=== PATIENT | male | born 1940 | race Caucasian/White ===

== ENCOUNTER 2016-08-29 17:09 | Emergency (ER) | payer MEDICARE, BC ==
[~2016-08-29] VITALS: Ht 172.7 cm; Wt 84.1 kg
[~2016-08-29 17:09] MED LIST: ALLO300 PO; CARB25TA PO; COMT200T PO; LORA-474 PO; OCUVTAB PO; PROS5TAB2 PO; VITA200017 PO; Z.0.WALKERFRONT
[2016-08-29 17:20] VITALS: BP 178/74; PULSE 81; RESP 28; TEMP 97.6; O2SAT 96
[2016-08-29] MEDS ORDERED: SODIUM CHLORIDE 0.9% FLUSH 10 ML FLUSH IVF PRN (17:30)
[2016-08-29] MEDS ORDERED: CARB25TA9 PO (17:32)
[2016-08-29] MEDS ORDERED: ENTA1TAB PO (17:32)
[2016-08-29] MEDS ORDERED: VALS1TAB64 PO (17:32)
[2016-08-29] MEDS ORDERED: OCUVTAB PO (17:32)
[2016-08-29] MEDS ORDERED: ALLO300T2 PO (17:32)
[2016-08-29] MEDS ORDERED: FINA5TAB2 PO (17:32)
[2016-08-29] MEDS ORDERED: VITA2000 PO (17:32)
[2016-08-29] MEDS ORDERED: LORA1TAB12 PO (17:32)
[2016-08-29] MEDS ORDERED: HYDR12.57 PO (17:32)
--- NOTE | 2016-08-29 17:42 | PD ---
HPI . Hematuria Chief Complaint: Complaint Time Seen by Provider: 17:19 Travel History International Travel<30 days: No Contact w/Intl Traveler<30days: No Traveled to known affect area: No History of Present Illness HPI Patient presents with painless hematuria. Onset was about 2:15. He has had 3 subsequent grossly bloody urine. He states that he has had 3 bottles of water to try to flush it out. The urine is not as dark now as it was at onset. He denies any pain associated with it. He denies any fever. He does not take any anticoagulants. He denies any urinary tract symptoms such as dysuria, frequency or urgency. He has not been running a fever. There is no obvious cause for the hematuria. His hematuria seems to be improving with water. He denies any dizziness, chest pain, shortness of breath. PFSH Past Medical History Hx Anticoagulant Therapy: No Arthritis: No Asthma: No Anxiety: Yes Heart Rhythm Problems: No Cardiovascular Problems: Yes (HTN) High Cholesterol: No Chest Pain: No Congestive Heart Failure: No COPD: No Cerebrovascular Accident: No Coronary Artery Disease: Yes Diabetes: No Diminished Hearing: No GERD: No Gout: Yes Genitourinary: No Headaches: No Hepatitis: No Hiatal Hernia: No Hypertension: Yes Kidney Stones: Yes Musculoskeletal: No Neurologic: No Parkinson's Disease: Yes Reproductive: No Respiratory: Yes Migraines: No Myocardial Infarction: No Renal Failure: No Seizures: No Sleep Apnea: Yes Ulcer: No Tetanus Vaccination: < 5 Years Influenza Vaccination: Yes Past Surgical History Abdominal Surgery: Yes (Hernia X's 2, colon polyp removed ) Appendectomy: No Cardiac Surgery: No Cholecystectomy: No Ear Surgery: No Endocrine Surgery: No Eye Surgery: No Genitourinary Surgery: Yes (polyp removed 04/22/07) Gynecologic Surgery: No Oral Surgery: No Thoracic Surgery: No Other Surgery: Yes (Nasal ) Social History Alcohol Use: No Tobacco Use: No Substance Use: No Allergies-Medications (Allergen,Severity, Reaction): Coded Allergies: No Known Allergies (Verified , 08/29/16) Reported Meds & Prescriptions Reported Meds & Active Scripts Active Reported Ocuvite (Multiple Vitamins W/ Minerals) 1 Tab 1 Tab PO DAILY Vitamin D3 (Cholecalciferol) 2,000 Unit Cap 2,000 Units PO DAILY Entacapone 200 Mg Tab 200 Mg PO TID administered concomitantly with each levodopa/carbidopa dose Carbidopa-Levodopa 25-100 Mg Tab 1 Tab PO Q8HR Lorazepam 1 Mg Tab 1 Mg PO DAILY Allopurinol 300 Mg Tab 300 Mg PO DAILY Finasteride 5 Mg Tab 5 Mg PO DAILY Do not crush. Hydrochlorothiazide 12.5 Mg Cap 12.5 Mg PO EVERY OTHER DAY Valsartan 80 Mg Tab 80 Mg PO BID Review of Systems Except as stated in HPI: all other systems reviewed are Neg General / Constitutional: No: Fever, Chills Cardiovascular: No: Chest Pain or Discomfort Respiratory: No: Shortness of Breath Gastrointestinal: No: Nausea, Vomiting Genitourinary: Positive: Hematuria, No: Urgency, Frequency, Dysuria, Decreased Urinary Output, Pelvic Pain, Flank Pain Neurologic: Positive: Tremor (history of Parkinson's disease), Other (frequent falls) Physical Exam Narrative GENERAL: The patient is awake and alert and fully oriented. SKIN: Warm and dry. No bruising in the flank area noted. HEAD: Atraumatic. Normocephalic. EYES: Pupils equal and round. Extraocular movements are intact. ENT: No nasal bleeding or discharge. Mucous membranes pink and moist. NECK: Trachea midline. Neck is supple. CARDIOVASCULAR: Regular rate and rhythm. Heart sounds are normal. RESPIRATORY: No accessory muscle use. Lungs are clear with full air movement throughout. GASTROINTESTINAL: Abdomen soft, non-tender, nondistended. There is no CVA tenderness. MUSCULOSKELETAL: No obvious deformities. No edema. NEUROLOGICAL: Awake and alert. No obvious cranial nerve deficits. He has a pronounced tremor. Normal speech. PSYCHIATRIC: Appropriate mood and affect; insight and judgment normal. Data Data Last Documented VS Vital Signs Date Time Temp Pulse Resp B/P Pulse Ox O2 Delivery O2 Flow Rate FiO2 08/29/16 17:20 97.6 81 28 178/74 96 Orders Basic Metabolic Panel (Bmp) (08/29/16 17:19) Complete Blood Count With Diff (08/29/16 17:19) Ua Includes Microscopic (08/29/16 17:19) Iv Access Insert/Monitor (08/29/16 17:19) Sodium Chloride 0.9% Flush (Ns Flush) (08/29/16 17:30) Prothrombin Time / Inr (Pt) (08/29/16 17:19) Act Partial Throm Time (Ptt) (08/29/16 17:19) Ct Abd/Pel W/O Iv Contrast (08/29/16 17:27) Urine Culture (08/29/16 17:40) Labs Laboratory Tests Test 08/29/16 17:40 White Blood Count 9.0 TH/MM3 Red Blood Count 4.09 MIL/MM3 Hemoglobin 13.1 GM/DL Hematocrit 38.9 % Mean Corpuscular Volume 95.0 FL Mean Corpuscular Hemoglobin 31.9 PG Mean Corpuscular Hemoglobin 33.6 % Concent Red Cell Distribution Width 13.7 % Platelet Count 159 TH/MM3 Mean Platelet Volume 7.0 FL Neutrophils (%) (Auto) 74.4 % Lymphocytes (%) (Auto) 13.0 % Monocytes (%) (Auto) 9.8 % Eosinophils (%) (Auto) 2.1 % Basophils (%) (Auto) 0.7 % Neutrophils # (Auto) 6.6 TH/MM3 Lymphocytes # (Auto) 1.2 TH/MM3 Monocytes # (Auto) 0.9 TH/MM3 Eosinophils # (Auto) 0.2 TH/MM3 Basophils # (Auto) 0.1 TH/MM3 CBC Comment DIFF FINAL Differential Comment Prothrombin Time 10.9 SEC Prothromb Time International 1.0 RATIO Ratio Activated Partial 30.3 SEC Thromboplast Time Urine Color RED Urine Turbidity CLOUDY Urine pH 5.5 Urine Specific [place] 1.008 Urine Protein 100 mg/dL Urine Glucose (UA) NEG mg/dL Urine Ketones NEG mg/dL Urine Occult Blood LARGE Urine Nitrite NEG Urine Bilirubin NEG Urine Leukocyte Esterase NEG Urine RBC INNUM /hpf Urine WBC 9-14 /hpf Urine Squamous Epithelial 0-5 /hpf Cells Microscopic Urinalysis Comment CULTURE INDICATED Sodium Level 137 MEQ/L Potassium Level 4.4 MEQ/L Chloride Level 104 MEQ/L Carbon Dioxide Level 24.6 MEQ/L Anion Gap 8 MEQ/L Blood Urea Nitrogen 69 MG/DL Creatinine 2.00 MG/DL Estimat Glomerular Filtration 33 ML/MIN Rate Random Glucose 110 MG/DL Calcium Level 8.1 MG/DL [facility] Medical Decision Making Medical Screen Exam Complete: Yes Emergency Medical Condition: Yes Medical Record Reviewed: Yes (medical history is significant for Parkinson's disease, hypertension, thrombocytopenia and chronic kidney disease with his most recent GFR being about 30) Differential Diagnosis Differential diagnosis of hematuria includes but is not limited to UTI, prostatitis, ruptured blood vessel, bladder cancer, kidney stone Narrative Course Patient presents for evaluation of painless hematuria. He does not take any anticoagulants. He does not have any flank pain. He does not have any urinary tract symptoms. CBC & BMP Diagram 08/29/16 17:40 Last Impressions Abdomen/Pelvis CT 08/29/16 1727 Signed Impressions: Service Date/Time: August 17:44 - CONCLUSION: There is a changed appearance to 2 of the numerous large cysts in both kidneys with these 2 cysts demonstrating internal lobular areas of hyperdensity, possibly representing blood products. No hyperdensity is within the urinary bladder and no calcified stones. Calcified gallstone near the neck of the gallbladder similar to prior. Vick Enriquez MD UA shows TNTC RBCs, 9-14 WBCs. I suspect that the etiology of the hematuria is bleeding from the cysts. However, I will cover him for possible UTI with Macrobid. Urine culture is pending. Diagnosis Primary Impression: Hematuria Patient Instructions: Acute Hematuria (DC), General Instructions Additional Instructions: Follow-up with her primary care provider or urologist in 2-3 days for recheck. Med/Other Pt SpecificInfo: Prescription(s) given Scripts Nitrofurantoin Monohydrate Macrocrystals (Macrobid)100 Mg [id number] Mg PO BID 7 Days Ref 0 Prov:Kayley Savage MD 08/29/16 Disposition: 01 DISCHARGE HOME Condition: Stable Kayley Savage MD Aug 29, 2016 17:42
[2016-08-29 17:46] LABS: AUTOMATED NEUTROPHIL # 6.6 TH/MM3 (1.8-7.7); BASOPHIL # 0.1 TH/MM3 (0-0.2); BASOPHIL % 0.7 % (0.0-2.0); EOSINOPHIL # 0.2 TH/MM3 (0-0.4); EOSINOPHIL % 2.1 % (0.0-4.0); HEMATOCRIT 38.9 % (39.0-51.0); HEMO FLAGS DIFF FINAL; LYMPHOCYTE # 1.2 TH/MM3 (1.0-4.8); MEAN CORPUSCULAR HEMOGLOBIN 31.9 PG (27.0-34.0); MEAN CORPUSCULAR HGB CONC 33.6 % (32.0-36.0); MONO % 9.8 % (0.0-8.0); NEUT % 74.4 % (16.0-70.0); PLATELET COUNT 159 TH/MM3 (150-450); RED BLOOD COUNT 4.09 MIL/MM3 (4.50-5.90); RED CELL DISTRIBUTION WIDTH 13.7 % (11.6-17.2)
[2016-08-29 17:48] LABS: BLOOD, URINE LARGE (NEG); GLUCOSE,URINE NEG (NEG); KETONE, URINE NEG (NEG); NITRITE,URINE NEG (NEG); PH, URINE 5.5 (5.0-8.5)
[2016-08-29 17:54] LABS: POTASSIUM 4.4 MEQ/L (3.5-5.1)
[2016-08-29 17:57] LABS: BICARBONATE 24.6 MEQ/L (21.0-32.0)
[2016-08-29 18:03] LABS: APTT (PATIENT) 30.3 SEC (24.3-30.1); PROTHROMBIN TIME - PATIENT 10.9 SEC (9.8-11.6)
--- NOTE | 2016-08-29 18:07 | RADHPO ---
EXAM DATE/TIME: 08/29/2016 17:44 [facility] COMPARISON: CT ABDOMEN & PELVIS W/O CONTRAST, September 16, 2015, 16:27. INDICATIONS : Gross hematuria. ORAL CONTRAST: No oral contrast ingested. RADIATION DOSE: 21.86 CTDIvol (mGy) MEDICAL HISTORY : Renal calculi. Hypertension. Parkinsons. SURGICAL HISTORY : Hernia repair. ENCOUNTER: Initial ACUITY: 1 day PAIN SCALE: 0/10 LOCATION: Abdomen. TECHNIQUE: Volumetric scanning of the abdomen and pelvis was performed. Using automated exposure control and ad justment of the mA and/or kV according to patient size, radiation dose was kept as low as reasonably achievable to obtain optimal diagnostic quality images. FINDINGS: LOWER LUNGS: The visualized lower lungs are clear. LIVER: Homogeneous density without focal lesion for noncontrast technique. 1 cm calcified stone near the ne ck of the gallbladder similar to prior exam. SPLEEN: Normal size without lesion. PANCREAS: Within normal limits. KIDNEYS: Prior CT had demonstrated numerous large bilateral renal cysts. The cysts are similar in size. Ther e is curvilinear calcification along the margin of the largest cyst in the lower pole the right kidne y. 2 of the large cysts in the mid and upper pole the right kidney have a changed appearance, contai kameron lobular intermediate density with in; there is a hyperdensity measuring 4.2 cm with in a 5.5 cm cyst and a 3 cm hypodensity with in a 5.2 cm cyst. The right ureter is normal in dimension without d ilation or hyperdensity. No hyperdensity seen in the left renal cysts. ADRENAL GLANDS: Within normal limits. VASCULAR: There is no aortic aneurysm. BOWEL/MESENTERY: No dilated loops of small or large bowel. ABDOMINAL WALL: Within normal limits. RETROPERITONEUM: There is no lymphadenopathy. BLADDER: No wall thickening or mass. REPRODUCTIVE: Within normal limits. INGUINAL: Moderate-sized right inguinal hernia containing predominantly fat. Small left inguinal hernia contai kameron fat. MUSCULOSKELETAL: Within normal limits for patient age. CONCLUSION: There is a changed appearance to 2 of the numerous large cysts in both kidneys with these 2 cysts dem onstrating internal lobular areas of hyperdensity, possibly representing blood products. No hyperden sity is within the urinary bladder and no calcified stones. Calcified gallstone near the neck of the gallbladder similar to prior. Vick Enriquez MD on August 29, 2016 at 17:58 Board Certified Radiologist. This report was verified electronically.
[2016-08-29 18:17] LABS: URINE COLOR RED (YELLW/STRAW)
[2016-08-29 18:18] LABS: COMMENT (UR) CULTURE INDICATED; RBC, URINE INNUM /hpf (0-3); SQUAMOUS EPITHELIAL CELL URINE 0-5 /hpf (0-5)
[2016-08-29] MEDS ORDERED: MACR100C2 PO (18:37)
[2016-08-29 18:55] VITALS: BP 168/91; PULSE 85; RESP 20; O2SAT 95
== END 2016-08-29 19:37 | disposition home or self-care (01) ==
LOC: PHED 17:09
DX: R31.9 Hematuria, unspecified (principal); I10 Essential (primary) hypertension
CPT/HCPCS: 74176; 80048; 81001; 85025; 85610; 85730; 87086; 99284